=== PATIENT | male | born 1950 | race Caucasian/White ===

== ENCOUNTER 2018-10-06 01:46 | Emergency (ER) | payer OTHER, MEDICARE ==
[~2018-10-06] VITALS: Ht 172.7 cm; Wt 83.9 kg
--- NOTE | ~2018-10-06 | EKG ---
[place], [place] ELECTROCARDIOGRAM REPORT NAME: JUDI GREENE UNIT #: [id number] ROOM: DOCTOR: EPIPHANY DRAFT REPORT BIRTHDATE: [birth year] [facility] Test Date: 2018-10-06 Test Time: 02:10:07 Pat Name: JUDI GREENE Department: ED Room: 6 Gender: M [employer] Operator: Consuelo Mclain : 1950 Requested By: ODALIS MEJIA Order Number: [id number] Reading MD: Huma Montgomery MD Measurements Intervals [place] Rate: 97 P: 5 MS: 164 QRS: -20 QRSD: 93 T: 44 QT: 325 QTc: 413 Interpretive Statements Sinus rhythm Normal ECG Electronically Signed On 10-08-2018 7:33:16 PST by Huma Montgomery MD CM:EKGRPT:ELECTROCARDIOGRAM REPORT [id number] ODALIS MEJIA MD EPIPHANY DRAFT REPORT ODALIS MEJIA MD
[2018-10-06 02:16] LABS: BASO # 0.1 10*3/uL (0.0-0.1); BASO % 0.6 % (0.0-1.0); EOS # 0.1 10*3/uL (0.0-0.4); EOS % 0.6 % (1.0-4.0); HEMATOCRIT 42.3 % (42.0-52.0); HEMOGLOBIN 13.7 g/dl (14.0-18.0); LYMPH # 1.1 10*3/uL (1.3-4.4); LYMPH % 12.5 % (27.0-41.0); MEAN CELL VOLUME 92.8 fl (80.0-94.0); MEAN CORPUSCULAR HGB CONC 32.4 g/dl (33.0-37.0); MEAN PLATELET VOLUME 9.4 fl (9.6-12.3); MONO # 0.9 10*3/uL (0.1-1.0); MONO % 9.9 % (3.0-9.0); NEUT # 6.9 10*3/uL (2.3-7.9); NEUT % 76.2 % (47.0-73.0); PLATELET COUNT AUTOMATED 235 10*3/uL (130-400); RED BLOOD COUNT 4.56 10*6/uL (4.50-5.90); RED CELL DISTRI WIDTH 16.7 % (0-14.5); WHITE BLOOD COUNT 9.1 10*3/uL (4.8-10.8)
[2018-10-06 02:39] LABS: ALBUMIN 3.9 gm/dl (3.1-4.5); ALKALINE PHOSPHATASE 47 U/L (45-117); BUN 14 mg/dl (7-24); CHLORIDE 106 mmol/L (98-107); CREATININE 1.31 mg/dL (0.70-1.30); LIPASE 259 U/L (73-393); POTASSIUM 3.5 mmol/L (3.5-5.1); SGOT/AST 15 IU/L (3-35); SGPT/ALT 30 U/L (12-78); SODIUM 141 mmol/L (136-145); TOTAL PROTEIN 7.3 gm/dL (6.4-8.2)
[2018-10-06 02:40] LABS: TROPONIN I < 0.015 ng/ml (<0.045)
[2018-10-06] MEDS ORDERED: PREDNISONE20 M1 PO (03:18)
[2018-10-06] MEDS ORDERED: AUGMENTIN 875875 MG PO (03:18)
== END 2018-10-06 03:22 | disposition home or self-care (01) ==
LOC: ED 01:46
PROVIDERS: Emergency Medicine Emergency Medical Services
DX: J02.9 Acute pharyngitis, unspecified (principal); J32.9 Chronic sinusitis, unspecified